=== PATIENT | male | born 1960 | race Caucasian/White ===

== ENCOUNTER 2019-05-13 11:26 | Inpatient (IN) | payer MEDICAID ==
[~2019-05-13] VITALS: Ht 185.4 cm; Wt 58.0 kg
[~2019-05-13 11:26] MED LIST: CLON0.5T PO
[2019-05-13] MEDS ORDERED: SODIUM CHLORIDE 0.9% 500 ML IVB ONE (11:57)
[2019-05-13] MEDS ORDERED: MORPHINE SULFATE 4 MG/ML SYR/VIAL IV ONE (12:00)
[2019-05-13] MEDS ORDERED: ONDANSETRON HCL 4 MG/2 ML VIAL IV ONE (12:00)
[2019-05-13 13:03] LABS: Basophils # (auto) 0.1 uL; Eosinophils # (auto) 0.1 uL; Mean Corpuscular Hemoglobin 25.5 pg (28.0-32.0)
[2019-05-13 13:11] LABS: Basophils % (auto) 1.6 % (0.0-2.0); Eosinophils % (auto) 2.1 % (0.0-7.0); Hemoglobin 8.7 g/dL (13.5-17.5); Lymphocytes # (auto) 1.9 uL; Lymphocytes % (auto) 27.6 % (10.0-50.0); Mean Corpuscular Hgb Conc. 31.1 g/dL (32.0-36.0); Monocytes # (auto) 0.8 uL; Monocytes % (auto) 11.4 % (0.0-12.0); Neutrophils # (auto) 3.9 uL; Neutrophils % (auto) 57.3 % (37.0-80.0); Platelet Count (auto) 338 10^3/uL (140-450); Red Blood Cells 3.42 10^6/uL (4.5-5.90); Red Cell Distribution Width 17.7 % (11.8-14.3); White Blood Cell 6.8 10^3/uL (4.4-10.8)
[2019-05-13 13:19] LABS: BUN/Creatinine Ratio 17.1; Calcium 8.5 mg/dL (8.5-10.1); Potassium 3.6 mmol/L (3.5-5.1)
[2019-05-13 13:22] LABS: Bilirubin, Total 0.4 mg/dL (0.2-1.0); Total Protein 6.8 g/dL (6.4-8.2)
[2019-05-13 14:07] LABS: Urine Bacteria FEW /hpf (None Seen); Urine Blood Negative /uL (Negative); Urine Hyaline Cast FEW /lpf (0 - 2); Urine Mucus FEW (None Seen); Urine Specific Gravity 1.019 (1.001-1.035); Urine WBC 3 /hpf (0 - 3)
[2019-05-13] MEDS ORDERED: LORazepam 0.5 MG TAB PO PRN (15:00)
[2019-05-13] MEDS ORDERED: PROMETHAZINE HCL 25 MG/ML 1ML IV PRN (15:00)
[2019-05-13] MEDS ORDERED: NITROGLYCERIN 0.4 MG SL TAB SL PRN (15:00)
[2019-05-13] MEDS ORDERED: MORPHINE SULF INJ 2 MG/ML SYRINGE 1ML IV PRN (15:00)
[2019-05-13] MEDS ORDERED: LACTULOSE 20Gm/30ML SOLN PO PRN (15:00)
[2019-05-13] MEDS: PANTOPRAZOLE 40 MG TAB PO SCH ×2 (15:20→22:00)
[2019-05-13] MEDS: SODIUM CHLORIDE 0.9% 1,000 ML IV SCH ×2 (15:20→22:50)
[2019-05-13 15:25] LABS: CRP High Sensitivity 0.31 mg/dL (< 0.3)
--- NOTE | 2019-05-13 17:17 | NUR ---
Telemetry admit from ER DINH COLÓN admitted to Telemetry unit after SBAR received. Patient oriented to Rose Catherine, primary RN, unit, room, bed, and unit policies regarding patient care and visiting hours. Patient now on continuous telemetry monitoring, tele box #65 and telemetry reading on arrival to unit is SR. Patient placed on bedside oxygen, weighed by bed scale and encouraged to call if they need something. All questions and concerns addressed, patient verbalized understanding.
[2019-05-13] MEDS ORDERED: INFLUENZA QUAD 2019-2020 0.5ml SYRG IM ONE (18:15)
--- NOTE | 2019-05-13 18:15 | NUR ---
AMA form Patient educated on possible risks once stepping out of hospital. Patient acknowledged understanding. Patient signed AMA form to smoke.
--- NOTE | 2019-05-13 18:19 | NUR ---
MRSA SWAB MRSA SWAB collected from R/L nare and sent to lab via [employer] system.
[2019-05-13 18:55] LABS: Hematocrit 26.3 % (41.0-53.0); Hemoglobin 8.3 g/dL (13.5-17.5)
[2019-05-13 20:00] VITALS: BP 125/64
--- NOTE | 2019-05-13 20:00 | NUR ---
Opening Shift Note Assumed care of patient, awake and alert. No S/S of distress/SOB or pain. Instructed on POC and to call for assist PRN, will continue to monitor for changes Q1hr and PRN.
[2019-05-13 22:00] VITALS: BP 125/64
[2019-05-13] MEDS: metroNIDAZOLE 500MG/100ML 100 ML IV SCH (22:13)
[2019-05-14] VITALS (7 sets, daily range): BP systolic 120–130; BP diastolic 64–90
[2019-05-14 00:39] LABS: Hematocrit 26.2 % (41.0-53.0); Hemoglobin 8.1 g/dL (13.5-17.5)
[2019-05-14 02:44] LABS: INR 1.01 (0.9-1.15); Partial Thromboplastin Time 27.2 sec (23.64-32.05)
--- NOTE | 2019-05-14 05:04 | NUR ---
patient refused to sign consents at this moment. Began to do ekg on patient patient would not allow me per patient" do it before i go down there in the morning."
[2019-05-14 05:24] LABS: Basophils # (auto) 0.1 uL; Eosinophils # (auto) 0.2 uL; Hemoglobin 8.2 g/dL (13.5-17.5); Lymphocytes # (auto) 1.5 uL; Monocytes # (auto) 0.7 uL; Neutrophils # (auto) 4.1 uL; Platelet Count (auto) 320 10^3/uL (140-450); White Blood Cell 6.6 10^3/uL (4.4-10.8)
[2019-05-14 05:26] LABS: Basophils % (auto) 1.6 % (0.0-2.0); Hematocrit 26.2 % (41.0-53.0); Lymphocytes % (auto) 22.2 % (10.0-50.0); Mean Corpuscular Hemoglobin 25.8 pg (28.0-32.0); Mean Corpuscular Hgb Conc. 31.3 g/dL (32.0-36.0); Mean Corpuscular Volume 82.3 fL (80.0-100.0); Monocytes % (auto) 10.8 % (0.0-12.0); Neutrophils % (auto) 62.4 % (37.0-80.0); Red Blood Cells 3.18 10^6/uL (4.5-5.90); Red Cell Distribution Width 16.9 % (11.8-14.3)
[2019-05-14] MEDS: metroNIDAZOLE 500MG/100ML 100 ML IV SCH ×3 (05:35→21:04)
[2019-05-14 05:43] LABS: Albumin 2.6 g/dL (3.4-5.0); Calcium 8.2 mg/dL (8.5-10.1); Potassium 4.6 mmol/L (3.5-5.1)
[2019-05-14 05:45] LABS: BUN/Creatinine Ratio 12.9
[2019-05-14 05:52] LABS: Bilirubin, Total 0.2 mg/dL (0.2-1.0)
[2019-05-14] MEDS: SODIUM CHLORIDE 0.9% 1,000 ML IV SCH ×3 (06:50→23:17)
--- NOTE | 2019-05-14 07:30 | NUR ---
REPORT GIVEN TO DAYSHIFT RN. ALL QUESTIONS AND CONCERNS ABOUT PATIENT ANSWERED.
--- NOTE | 2019-05-14 08:00 | NUR ---
ASSUMED CARE OF PATIENT AWAKE AND ALERT X4. NO SIGNS AND SYMPTOMS OF DISTRESS/SOB. NO COMPLAINTS OF PAIN AT THIS TIME. BED IN LOWEST LOCKED POSITION, SIDERAILS UPX2, CALL LIGHT WITHIN REACH. INSTRUCTED ON POC AND TO CALL FOR ASSISTANCE PRN. WILL CONTINUE TO MONITOR Q1H AND PRN.
--- NOTE | 2019-05-14 08:15 | NUR ---
Per RECREATIONAL PROGRAMS DIRECTOR, patient was eating, he was chewing on food. Patient denies eating anything. MD aware.
[2019-05-14] MEDS ORDERED: SODIUM CHLORIDE LOCK 10 ML ONE (09:04)
[2019-05-14] MEDS ORDERED: MIDAZOLAM HCL 5 MG/ML-1ML VIAL ONE (09:05)
[2019-05-14] MEDS ORDERED: fentaNYL CITRATE 100 MCG/2 ML VL ONE (09:05)
[2019-05-14] MEDS ORDERED: diphenhdrAMINE HCL 50 MG/1 ML VL ONE (09:05)
[2019-05-14] MEDS ORDERED: LIDOCAINE VISCOUS 2% 15ML UD ONE (09:05)
[2019-05-14] MEDS: PANTOPRAZOLE 40 MG TAB PO SCH (10:00)
--- NOTE | 2019-05-14 11:15 | NUR ---
Patient down at pre-op.
[2019-05-14] MEDS ORDERED: ALBUTEROL SULF 2.5 MG/0.5ML(0.5%) NEB SOLN NEB PRN (11:30)
--- NOTE | 2019-05-14 16:26 | NUR ---
Respiratory note: ASSESSED PATIENT FOR PRN BREATHING TX. PATIENT IS AWAKE AND ALERT, NO RESPIRATORY DISTRESS NOTED AT THIS TIME. PATIENT UNDERSTANDS TO HAVE RT PAGED IF BREATHING TX IS NEEDED. WILL CONTINUE TO MONITOR PATIENT.
--- NOTE | 2019-05-14 16:38 | NUR ---
Received referral for Social Service consult as pt is homeless. Pt is alert and oriented times three but is hard of hearing. Asked pt where he has been staying. Pt replied that he is staying "everywhere." He further states that he "bums" around for food. Pt has no ID and no Income. He has a daughter who he was staying with but they has an argument and he walked out. Pt was questioned as to if he was welcomed back into her home. He stated yes and they had talked on the phone yesterday. Pt also stated his daughter would pick him up.
--- NOTE | 2019-05-14 17:04 | NUR ---
assessment Patient is a 58 year old male who is alert and oriented. Patients cognitive abilities are intact. Prior to admission patient was homeless. Patient informed me he did live with his daughter, but left due to an argument. Per patient he will return home with his daughter post discharge and she will transport him home. I informed patient Rupinder REDMOND will bring him resources if he should need them. I informed patient he has a right to speak to a school social worker regarding all care. I informed patient he has a right to participate in any and all discharge planning. Patient does not have a POA and advanced directive. I have offered patient information on POA and advanced directives. I informed the patient the advantages and benefits of having an Advanced Directive. Patient verbalized understanding and agreed to discharge plan. Addendum: 05/14/19 at 1706 by Tala WOMACK Amended: Links added.
--- NOTE | 2019-05-14 20:20 | NUR ---
CALL FROM NURSING HOME DIRECTOR TO TOOLROOM HELPER, PATIENT IS RUNNING TACHYCARDIA. UPON ENTERING ROOM PATIENT IS COMING OUT OF THE RESTROOM. PATIENT DENIES ANY PAIN/SOB./ OR DISTRESS. ASSISTED PATIENT BACK IN BED. PATIENT IS DRINKING COFFEE. PATIENT RUNNING SR AT 85BPM. BED IN LOW POSITION AND CALL LIGHT WITHIN REACH.
--- NOTE | 2019-05-15 02:14 | NUR ---
SUTURE WINDER HAND VADIM INFORMED ME THAT PER TELE DOUBLE BACKER PATIENT IS RUNNING SVT. UPON ENTERING ROOM PATIENT REPORTS NO SIGNS OF PAIN OR DISTRESS.PATIENT HAD DISCONNECTED HIMSELF FROM HIS IV FLUIDS TO USE THE RESTROOM. WATER WAS FOUND ON THE FLOOR. PATIENT STATED HE WENT TO THE RESTROOM. VS 132/61 B/P, HR 81, O2 SATURATION VIA ROOM AIR 95%, RR17, 0/10 PAIN. EDUCATED PATIENT TO CALL FOR ASSISTANCE AND TO NOT DISCONNECT HIMSELF. PATIENT VERBALIZED UNDERSTANDING. PATIENT BACK IN BED. BED IN LOW POSITION AND CALL LIGHT WITHIN REACH.
[2019-05-15] MEDS: metroNIDAZOLE 500MG/100ML 100 ML IV SCH ×3 (05:27→21:17)
[2019-05-15 05:49] VITALS: BP 130/73
[2019-05-15 06:05] LABS: Basophils # (auto) 0.1 uL; Eosinophils # (auto) 0.1 uL; Hemoglobin 8.2 g/dL (13.5-17.5); Lymphocytes # (auto) 1.9 uL; Mean Corpuscular Hemoglobin 25.8 pg (28.0-32.0); Red Blood Cells 3.19 10^6/uL (4.5-5.90)
[2019-05-15 06:07] LABS: Basophils % (auto) 1.6 % (0.0-2.0); Eosinophils % (auto) 2.4 % (0.0-7.0); Hematocrit 26.1 % (41.0-53.0); Lymphocytes % (auto) 34.7 % (10.0-50.0); Mean Corpuscular Hgb Conc. 31.5 g/dL (32.0-36.0); Mean Corpuscular Volume 81.9 fL (80.0-100.0); Monocytes # (auto) 0.7 uL; Monocytes % (auto) 12.2 % (0.0-12.0); Neutrophils # (auto) 2.7 uL; Neutrophils % (auto) 49.1 % (37.0-80.0); Nucleated Red Blood Cells % 0.1 %; Platelet Count (auto) 323 10^3/uL (140-450); Red Cell Distribution Width 17.3 % (11.8-14.3); White Blood Cell 5.6 10^3/uL (4.4-10.8)
--- NOTE | 2019-05-15 06:20 | NUR ---
patient went to the restroom and linen change was done.
--- NOTE | 2019-05-15 06:31 | NUR ---
patient went down to smoke AMA form signed. educated patient about hospital smoking policy. patient verbalized understanding, requested to go smoke.
[2019-05-15 06:35] LABS: Albumin 2.6 g/dL (3.4-5.0); BUN/Creatinine Ratio 17.6; Bilirubin, Total 0.3 mg/dL (0.2-1.0); Calcium 8.4 mg/dL (8.5-10.1); Potassium 4.3 mmol/L (3.5-5.1); Total Protein 6.2 g/dL (6.4-8.2)
--- NOTE | 2019-05-15 06:47 | NUR ---
Patient returned from smoking
[2019-05-15] MEDS: SODIUM CHLORIDE 0.9% 1,000 ML IV SCH ×3 (06:52→21:18)
[2019-05-15] MEDS: traMADol HCL 50 MG TAB PO PRN ×2 (06:53→20:07)
--- NOTE | 2019-05-15 07:20 | NUR ---
REPORT GIVEN AND ENDORSED CARE TO THERON SEGURA.
--- NOTE | 2019-05-15 07:55 | NUR ---
Morning note Opening Shift Note Assumed care of patient, resting with eyes closed observed respiration even and non labored. No S/S of distress/SOB or pain. Bed in lowest position, breaks locked, side rails up x2,call light with in reach. Will continue to monitor for changes Q1hr and PRN.
[2019-05-15 08:10] VITALS: BP 128/73
[2019-05-15 09:17] VITALS: BP 128/73
[2019-05-15] MEDS: PANTOPRAZOLE 40 MG TAB PO SCH (10:08)
[2019-05-15 14:20] VITALS: BP 129/73
--- NOTE | 2019-05-15 15:23 | NUR ---
ASSESSED PT FOR THE REQUIREMENT OF MED NEB PRN TX. PT ON RA WITH CLEAR BS, SPO2 98%, HR 89, RR 18. NO DISTRESS NOTED. MED NEB NOT INDICATED. WILL CONTINUE TO MONITOR PT.
--- NOTE | 2019-05-15 16:35 | NUR ---
Contacted Ale case management, notified her on psychotherapist social worker consult.
--- NOTE | 2019-05-15 16:40 | NUR ---
Called phone number provided by the patient Phone number provided by patient, and called per patient requests. Phone number is to patient's brother in law David [phone]. Patient and David have not seen each other in 20 years, per David. David reports that the patient's daughters names are Dang and Mikaela but could not provide phone numbers of family. David requested to call back to give phone numbers of family members.
--- NOTE | 2019-05-15 16:50 | NUR ---
Spoke with Family Contacted patients daughter Danae at phone number [phone]. Danae stated " I know my father is homeless and he uses drugs. I cannot have him living with me if he is not Sober." Danae requested to speak to patient and hung up during transfer. Was called back and no answer message was left.
--- NOTE | 2019-05-15 16:55 | NUR ---
Case management: Spoke with Ale case management on possible placement facilities. Requested to contact [facility] [phone] to see if there is any available beds for patient. Called phone number provided by Ale, no answer and voicemail was full.
[2019-05-15 17:06] VITALS: BP 121/68
--- NOTE | 2019-05-15 17:18 | NUR ---
Spoke with David Hernandez stated "I haven't seen or talked to him in 20 years. We have been looking for him. His nieces really want to get into contact with him but are hesitant to give out their number to him because we don't know if this is for sure the right Erik." David provided a specific question for the patient to answer to confirm that this is the correct Erik Willams they have been looking for. Patient correctly answered the question. David stated "I knew he was out that way. Myself and my nieces are in [place]. The last I heard he was at the sober living house but by the time I called he had already left. I'm going to see about getting his a bus ride out here and I can help him with a place to live then he can be united with his daughters." Phone call was transferred to the patient's room. Mr. Alejandro Willams gave this RN permission to speak with David. IMELDA Leong, and Dr. Trujillo were witness to the verbal agreement.
--- NOTE | 2019-05-15 17:45 | NUR ---
Spoke with David Hernandez stated "I'm going to buy him a one-way ticket to [place] and have him come out here to stay with us. The bus station is already closed today but I will get him a ticket tomorrow. I'm going to call as soon as they open."
--- NOTE | 2019-05-15 18:23 | NUR ---
RE: Discharge Updated Dr. Trujillo that patient is being provided with transportation to [place] 05/16/19 by his [id number] David. verbalized understanding. Orders received and read back to verify.
--- NOTE | 2019-05-15 18:40 | NUR ---
HOMELESS MEAL AT BEDSIDE PROVIDED BY DIETARY.
--- NOTE | 2019-05-15 19:35 | NUR ---
Endorsed care to NOC RN Rachel. Patient respiration even and unlabored. No s/s of distress noted.
--- NOTE | 2019-05-15 19:35 | NUR ---
Opening Shift Note Assumed care of patient, eyes closed, respirations even and unlabored, appears asleep. No S/S of distress/SOB or pain. Bed in lowest locked position, side rails up x2, call light within reach. Instructed on POC and to call for assist PRN, will continue to monitor for changes Q1hr and PRN.
--- NOTE | 2019-05-15 20:10 | NUR ---
Respiratory note: PT ASSESSED FOR PRN MED NEB TX. HR 75, RR 14, SPO2 95% ON R/A. NO SIGNS OF ANY RESPIRATORY DISTRESS NOTED. ADVISED PT TO CALL IF TX IS NEEDED. RT NAME AND PAGER NUMBER WRITTEN ON PT'S BOARD.
[2019-05-15 22:00] VITALS: BP 138/72
[2019-05-16 05:00] VITALS: BP 122/68
[2019-05-16] MEDS: metroNIDAZOLE 500MG/100ML 100 ML IV SCH (05:56)
[2019-05-16] MEDS: SODIUM CHLORIDE 0.9% 1,000 ML IV SCH ×2 (05:56→14:50)
--- NOTE | 2019-05-16 06:55 | NUR ---
Closing Note Patient lying in bed, eyes closed, respirations even and unlabored, appears asleep. Patient awakens to name and touch. No s/s of distress. Bed in lowest locked position, side rails up x2, call light within reach. Care endorsed to dayshift RN.
[2019-05-16 09:38] VITALS: BP 114/59
--- NOTE | 2019-05-16 09:40 | NUR ---
Respiratory note: PT ASSESSED FOR PRN MED NEB TX, NO TX DESIRED NOR INDICATED AT THIS TIME. PT DENIES SOB OR DIFF BREATHING, NO DISTRESS NOTED. HR 77 RR 16 SPO2 98% ON RA. PT AND RN AWARE TO HAVE RT PAGED IF NEEDED.
[2019-05-16] MEDS: PANTOPRAZOLE 40 MG TAB PO SCH (10:33)
--- NOTE | 2019-05-16 10:45 | NUR ---
Went in to patients room to talk about his discharge, Patient stated" Im feeling suicidal now". Ask patient if he had a plan Patient stated "Throw myself in front on a train or hang my self" Asked patient how long he has been feeling this way he stated "today". Asked patient has he ever felt this way before he said last year and was sent to [facility]. Paged doctor Ronnie to notify of patient statement, awaiting call back. Will continue to monitor. warp tester Mary pelayo.
--- NOTE | 2019-05-16 12:14 | NUR ---
Tele psych Spoke with Tele psych Valeriano, Tele monitor is currently being used on another patient. RN will call back when available to use on patient. Phone [phone].
[2019-05-16] MEDS ORDERED: NICOTINE 7MG/24HR TOPICAL PATCH TD ONE (12:15)
[2019-05-16 13:00] VITALS: BP 112/53
--- NOTE | 2019-05-16 14:25 | NUR ---
PATIENT SMOKING RECEIVED CALL FROM DEBI. PATIENT WAS IN BATHROOM AND TOOK ELECTRIC RAZOR. PER SITTER SHE KNOCKED ON BATHROOM DOOR TO ASK FOR RAZOR PATIENT OPENED DOOR AND WHEN THE DOOR WAS OPEN SHE SMELLED CIGARETTE SMOKE. THE PATIENT HANDED HER THE RAZOR AND THEN CLOSED THE DOOR. RN CAME TO ROOM AND KNOCKED ON DOOR PATIENT STATED "IM USING THE BATHROOM". WHEN PATIENT CAME OUT BATHROOM IT SMELLED STRONG OF SMOKE AND THERE WAS TOBACCO AND ASHES AROUND TOILET. PATIENT WAS ASKED IF HE SMOKED IN THE BATHROOM PATIENT DENIED SMOKING AND STATED "I ALWAYS SMELL LIKE SMOKE" MIRROR POLISHER LAURA AWARE AND SECURITY WAS CALLED. PATIENT EDUCATED THAT HE CAN NOT SMOKE IN THE HOSPITAL PATIENT STILL DENIED SMOKING.
--- NOTE | 2019-05-16 16:15 | NUR ---
Doctor Ronnie at bedside. MD was discussing POC with patient. MD told patient he could not smoke in the bathroom of the hospital.Patient became aggressive towards doctor. Patient shouted at MD using profound language and started to get out of bed towards MD. MD requested to call security to room.
--- NOTE | 2019-05-16 16:30 | NUR ---
Tele psych Results faxed over and shown to Doctor Ronnie. Per Ronnie patient okay to discharge. Results in patients chart.
--- NOTE | 2019-05-16 16:50 | NUR ---
Discharge Patient stated he was going to leave with out signing discharge paperwork. Patient was agitated and restless wanting to leave. Patient took out his own IV and removed tele box. Patient refused Influenza vaccine. Patient left homeless meal at bedside. Patient refused discharge education. Patient had bus pass and prescription in hand. Patient refused assistance from staff and ambulated with steady gait to elevator with all personal belonging accompany by staff member. No S/S of distress noted. Tele box sent back to ICU.
--- NOTE | 2019-05-17 08:46 | NUR ---
cms expert 05/15/19 I received a page from nurse Leong at 1630 regarding this patient not having a place to go home to. Per previous notes, the discharge plan was for patient to go home with his daughter. I spoke with patient via phone, and he said that was the plan-to go home with his daughter. I provided nurse Leong with information on [facility] in [place] to give to patient as a back up plan-letting her know that patient would have to speak with them on the phone-I let patient know this as well.
[2019-05-17] MEDS ORDERED: NICOTINE 7MG/24HR TOPICAL PATCH TD SCH (10:00)
[2019-05-17 10:41] LABS: Hepatitis B Surface Antibody Negative
[2019-05-17 11:15] LABS: Hepatitis A Total Antibody Negative
[2019-05-17 13:47] LABS: Hepatitis B Surface Antigen Negative (Negative)
[2019-05-17 13:48] LABS: Hepatitis B Core Total AB Negative
[2019-05-17 13:51] LABS: Hepatitis C Antibody Positive (Negative)
== END 2019-05-16 16:50 | disposition home or self-care (01) | DRG 241 ==
LOC: ER 11:26 → TELE 11:27 → TELE-WESTW 17:27
PROVIDERS: ADMIT Internal Medicine; ATTEND Internal Medicine
PROC: 0DB68ZX Excision of Stomach, Via Natural or Artificial Opening Endoscopic, Diagnostic (ICD-10-PCS; principal; 2019-05-14 11:59)
DX: K29.81 Duodenitis with bleeding (principal); D62 Acute posthemorrhagic anemia; F20.9 Schizophrenia, unspecified; J43.9 Emphysema, unspecified; E44.1 Mild protein-calorie malnutrition; I10 Essential (primary) hypertension; F17.210 Nicotine dependence, cigarettes, uncomplicated; R74.0 Nonspecific elevation of levels of transaminase and lactic acid dehydrogenase [LDH]; K59.00 Constipation, unspecified; F41.9 Anxiety disorder, unspecified; I70.90 Unspecified atherosclerosis; Z59.0 Homelessness; Z79.899 Other long term (current) drug therapy; Z28.21 Immunization not carried out because of patient refusal
CPT/HCPCS: 36415; 43239; 71045; 74176; 80053; 81001; 82150; 82378; 83690; 83735; 85014; 85018; 85025; 85045; 85610; 85652; 85730; 86141; 86703; 86704; 86706; 86708; 86803; 86850; 86900; 86901; 87081; 87340; 96361; 96365; 96375; G0378; J2250; J2405; J3490

== ENCOUNTER 2019-11-15 14:28 | Inpatient (IN) | payer MEDICAID ==
[~2019-11-15] VITALS: Ht 185.4 cm; Wt 64.0 kg
[2019-11-15] MEDS ORDERED: SODIUM CHLORIDE 0.9% 500 ML IV ONE (14:44)
[2019-11-15] MEDS ORDERED: ONDANSETRON HCL 4 MG/2 ML VIAL IV ONE (14:45)
[2019-11-15] MEDS ORDERED: diphenhdrAMINE HCL 50 MG/1 ML VL IV ONE (14:45)
[2019-11-15 15:08] LABS: Eosinophils % (auto) 0.2 % (0.0-7.0); Mean Corpuscular Volume 81.7 fL (80.0-100.0)
[2019-11-15 15:19] LABS: Basophils # (auto) 0 10 ^3/uL (0-0.2); Basophils % (auto) 0.5 % (0.0-2.0); Eosinophils # (auto) 0 10 ^3/uL (0-0.8); Hematocrit 29.4 % (41.0-53.0); Lymphocytes # (auto) 2.2 10 ^3/uL (0.4-5.4); Lymphocytes % (auto) 24.1 % (10.0-50.0); Mean Corpuscular Hgb Conc. 30.6 g/dL (32.0-36.0); Monocytes # (auto) 1.4 10 ^3/uL (0-1.3); Monocytes % (auto) 15.1 % (0.0-12.0); Neutrophils # (auto) 5.5 10 ^3/uL (1.6-8.6); Neutrophils % (auto) 60.1 % (37.0-80.0); Platelet Count (auto) 310 10^3/uL (140-450); Red Blood Cells 3.59 10^6/uL (4.5-5.90); Red Cell Distribution Width 20.2 % (11.8-14.3); White Blood Cell 9.1 10^3/uL (4.4-10.8)
[2019-11-15 15:33] LABS: Albumin 3.3 g/dL (3.4-5.0); Calcium 8.6 mg/dL (8.5-10.1); Potassium 4.9 mmol/L (3.5-5.1)
[2019-11-15 15:37] LABS: BUN/Creatinine Ratio 33.6; Bilirubin, Total 0.4 mg/dL (0.2-1.0); Total Protein 7.8 g/dL (6.4-8.2)
[2019-11-15] MEDS ORDERED: METOCLOPRAMIDE HCL 5MG/ml INJ 2ml VIAL IV PRN (16:00)
[2019-11-15] MEDS ORDERED: MORPHINE SULFATE 4 MG/ML SYR/VIAL IV PRN (16:00)
[2019-11-15] MEDS ORDERED: LACTATED RINGER'S 1,900 ML IV ONE (16:00)
[2019-11-15] MEDS ORDERED: NITROGLYCERIN 0.4 MG SL TAB SL PRN (16:00)
[2019-11-15] MEDS ORDERED: ONDANSETRON HCL 4 MG/2 ML VIAL IV PRN (16:00)
[2019-11-15] MEDS ORDERED: TEMAZEPAM 15 MG CAP PO PRN (16:00)
[2019-11-15] MEDS ORDERED: MORPHINE SULF INJ 2 MG/ML SYRINGE 1ML IV PRN (16:00)
[2019-11-15] MEDS ORDERED: PANTOPRAZOLE 40 MG/10 ML VIAL INJ IV ONE (16:00)
[2019-11-15] MEDS ORDERED: HYDROcodone-ACET 5/325MG TAB PO PRN (16:00)
[2019-11-15] MEDS ORDERED: SUCRALFATE 1 GM/10 ML ORAL SUSP PO ONE (16:00)
[2019-11-15] MEDS ORDERED: ALUM & MAG HYDROX-SIMETH LIQ(MAALOX) 30 ML PO PRN (16:00)
[2019-11-15] MEDS ORDERED: BENZTROPINE MESY 0.5 MG TAB PO ONE (16:30)
[2019-11-15 16:40] LABS: INR 1.05 (0.9-1.15); Partial Thromboplastin Time 25.8 sec (23.64-32.05)
[2019-11-15] MEDS: SODIUM CHLORIDE 0.9% 1,000 ML IV SCH ×2 (17:22→21:00)
--- NOTE | 2019-11-15 17:43 | NUR ---
Telemetry admit from ER DINH COLÓN admitted to Telemetry unit after report received. Patient oriented to DEWAYNE LANDRY RN primary RN, unit, room, bed, and unit policies regarding patient care and visiting hours. Patient now on continuous telemetry monitoring, tele box #28 and telemetry reading on arrival to unit. Patient weighed by bedscale and encouraged to call if they need something. All questions and concerns addressed, patient verbalized understanding.
--- NOTE | 2019-11-15 18:10 | NUR ---
AMA Patient has signed an AMA to smoke.
[2019-11-15 18:22] LABS: Alcohol, Urine < 3.0 mg/dL (0-5); Amphetamine Screen, Urine POSITIVE (NEGATIVE); Barbiturate Scree,Urine NEGATIVE (NEGATIVE); Cannabinoid Screen, Urine NEGATIVE (NEGATIVE); Cocaine Screen, Urine NEGATIVE (NEGATIVE); Opiate Scree,Urine NEGATIVE (NEGATIVE); Phencyclidine Screen, Urine NEGATIVE (NEGATIVE)
[2019-11-15 18:30] LABS: Benzodiazephine Screen, Urine NEGATIVE (NEGATIVE)
[2019-11-15 18:41] VITALS: BP 133/84
--- NOTE | 2019-11-15 19:19 | NUR ---
Closing Shift Note Patient resting in bed. No distress noted. Report given. Will endorse care to the police shift commander RN.
--- NOTE | 2019-11-15 19:20 | NUR ---
Opening Shift Note Assumed care of patient, awake and alert. No S/S of distress/SOB or pain. Instructed on POC and to call for assist PRN. Call light in reach, bed in lowest position, wheels locked. will continue to monitor for changes Q1hr and PRN.
[2019-11-15] MEDS: MORPHINE SULF INJ 2 MG/ML SYRINGE 1ML IV PRN (20:38)
[2019-11-15] MEDS: QUEtiapine FUMARATE 100 MG TAB PO SCH (21:39)
[2019-11-15] MEDS: clonazePAM 0.5 MG TAB PO SCH (21:39)
[2019-11-15 22:00] VITALS: BP 112/71
[2019-11-15] MEDS ORDERED: PANTOPRAZOLE 40 MG/10 ML VIAL INJ IV SCH (22:00)
[2019-11-16] MEDS: SODIUM CHLORIDE 0.9% 1,000 ML IV SCH ×3 (02:00→11:00)
[2019-11-16 04:59] VITALS: BP 106/53
[2019-11-16 05:57] LABS: Basophils # (auto) 0.1 10 ^3/uL (0-0.2); Basophils % (auto) 1.5 % (0.0-2.0); Eosinophils # (auto) 0.1 10 ^3/uL (0-0.8); Eosinophils % (auto) 1.5 % (0.0-7.0); Hematocrit 26.6 % (41.0-53.0); Hemoglobin 8.1 g/dL (13.5-17.5); Lymphocytes # (auto) 2.5 10 ^3/uL (0.4-5.4); Lymphocytes % (auto) 41.2 % (10.0-50.0); Mean Corpuscular Hemoglobin 25.6 pg (28.0-32.0); Mean Corpuscular Hgb Conc. 30.5 g/dL (32.0-36.0); Mean Corpuscular Volume 83.9 fL (80.0-100.0); Monocytes # (auto) 0.8 10 ^3/uL (0-1.3); Monocytes % (auto) 12.9 % (0.0-12.0); Neutrophils # (auto) 2.6 10 ^3/uL (1.6-8.6); Neutrophils % (auto) 42.9 % (37.0-80.0); Platelet Count (auto) 266 10^3/uL (140-450); Red Blood Cells 3.18 10^6/uL (4.5-5.90); Red Cell Distribution Width 19.5 % (11.8-14.3); White Blood Cell 6.1 10^3/uL (4.4-10.8)
[2019-11-16] MEDS: clonazePAM 0.5 MG TAB PO SCH ×3 (06:00→21:37)
[2019-11-16 06:11] LABS: INR 1.09 (0.9-1.15); Partial Thromboplastin Time 26.2 sec (23.64-32.05)
[2019-11-16 06:15] LABS: Potassium 4.3 mmol/L (3.5-5.1)
[2019-11-16 06:18] LABS: Urine WBC None Seen /hpf (0 - 3)
[2019-11-16 06:26] LABS: Urine Bacteria NONE SEEN /hpf (None Seen); Urine Blood Negative /uL (Negative); Urine Specific Gravity 1.007 (1.001-1.035)
[2019-11-16 06:32] LABS: Albumin 2.7 g/dL (3.4-5.0); BUN/Creatinine Ratio 26.8; Bilirubin, Total 0.4 mg/dL (0.2-1.0); Calcium 8.3 mg/dL (8.5-10.1); Magnesium 2.5 mg/dL (1.6-2.6); Total Protein 6.2 g/dL (6.4-8.2)
[2019-11-16] MEDS ORDERED: SUCRALFATE 1 GM/10 ML ORAL SUSP PO SCH (07:00)
--- NOTE | 2019-11-16 07:06 | NUR ---
Closing note Care endorsed to day shift RN. Pt no s/s of distress noted. Call light in reach, bed in lowest position, wheels locked.
--- NOTE | 2019-11-16 07:40 | NUR ---
Opening Shift Note Assumed care of patient, awake and alert. No S/S of distress/SOB or pain. Instructed on POC and to call for assist PRN, will continue to monitor for changes Q1hr and PRN. Bed locked in lowest position with two side rails up and call light in reach.
[2019-11-16 08:00] VITALS: BP 104/63
[2019-11-16] MEDS ORDERED: SODIUM CHLORIDE LOCK 10 ML ONE (08:16)
[2019-11-16] MEDS ORDERED: LIDOCAINE VISCOUS 2% 15ML UD ONE (08:16)
[2019-11-16] MEDS ORDERED: MIDAZOLAM HCL 5 MG/ML-1ML VIAL ONE (08:17)
[2019-11-16] MEDS ORDERED: fentaNYL CITRATE 100 MCG/2 ML VL ONE (08:17)
[2019-11-16] MEDS ORDERED: diphenhdrAMINE HCL 50 MG/1 ML VL ONE (08:17)
[2019-11-16 09:00] VITALS: BP 104/63
[2019-11-16] MEDS: cefTRIAXone 1GM/50ML D5W 50 ML IV SCH (10:40)
[2019-11-16] MEDS: PANTOPRAZOLE 40 MG TAB PO SCH ×2 (10:41→21:37)
[2019-11-16] MEDS: BENZTROPINE MESY 0.5 MG TAB PO SCH (10:41)
[2019-11-16 13:00] VITALS: BP 109/54
--- NOTE | 2019-11-16 14:57 | NUR ---
Nutrition Assessment Notes Please refer to link for full assessment notes. Est Energy needs: 1807-3296 kcals (23-25 kcal/kgIBW) d/t pt bordering underweight Est Protein needs: 84-100 gms/day (0.8-1.0 gm/kgIBW) Will continue to monitor and reassess prn. Addendum: 11/16/19 at [address] Amended: Links added.
[2019-11-16 17:05] VITALS: BP 124/77
[2019-11-16] MEDS: MORPHINE SULF INJ 2 MG/ML SYRINGE 1ML IV PRN (18:47)
--- NOTE | 2019-11-16 19:42 | NUR ---
RECEIVED REPORT FROM DAY RN POC REVIEWED
--- NOTE | 2019-11-16 19:45 | NUR ---
PT AMBULATED DOWNSTAIRS, ROLANDO PREVIOUSLY SIGNED, REMINDED PT OF HOSPITAL BEING NON SMOKING
--- NOTE | 2019-11-16 20:46 | NUR ---
PT ANGRY AND CURSING, BECAUSE HIS DINNER WAS TOO HARD, PT HAS NO TEETH, ORDER WAS EARLIER PLACED FOR PT TO HAVE A MECHANICAL DIET
--- NOTE | 2019-11-16 21:16 | NUR ---
PT LEFT UNIT,
--- NOTE | 2019-11-16 21:30 | NUR ---
PT RETURNED TO FLOOR
[2019-11-16] MEDS: QUEtiapine FUMARATE 100 MG TAB PO SCH (21:37)
--- NOTE | 2019-11-16 21:51 | NUR ---
PT LEFT FLOOR
--- NOTE | 2019-11-16 22:15 | NUR ---
pt returned to floor, no s/s of distress
--- NOTE | 2019-11-16 22:47 | NUR ---
pt given snack more calm at this time
[2019-11-17] VITALS (10 sets, daily range): BP systolic 121–140; BP diastolic 66–82
[2019-11-17] MEDS: SODIUM CHLORIDE 0.9% 1,000 ML IV SCH (02:08)
--- NOTE | 2019-11-17 04:00 | NUR ---
awoke incontinent of urine
[2019-11-17] MEDS: clonazePAM 0.5 MG TAB PO SCH ×3 (06:00→21:48)
--- NOTE | 2019-11-17 06:54 | NUR ---
pt resting refused am labs, report given to am nurse poc reviewed
[2019-11-17 10:06] LABS: Eosinophils # (auto) 0.1 10 ^3/uL (0-0.8); Hemoglobin 7.3 g/dL (13.5-17.5); Lymphocytes # (auto) 1.8 10 ^3/uL (0.4-5.4); Mean Corpuscular Volume 81.8 fL (80.0-100.0)
[2019-11-17 10:07] LABS: Basophils # (auto) 0.1 10 ^3/uL (0-0.2); Basophils % (auto) 1.3 % (0.0-2.0); Eosinophils % (auto) 1.8 % (0.0-7.0); Hematocrit 23.6 % (41.0-53.0); Lymphocytes % (auto) 36.4 % (10.0-50.0); Mean Corpuscular Hemoglobin 25.2 pg (28.0-32.0); Mean Corpuscular Hgb Conc. 30.8 g/dL (32.0-36.0); Monocytes # (auto) 0.7 10 ^3/uL (0-1.3); Monocytes % (auto) 14.8 % (0.0-12.0); Neutrophils # (auto) 2.3 10 ^3/uL (1.6-8.6); Neutrophils % (auto) 45.7 % (37.0-80.0); Platelet Count (auto) 250 10^3/uL (140-450); Red Blood Cells 2.89 10^6/uL (4.5-5.90); Red Cell Distribution Width 19.8 % (11.8-14.3); White Blood Cell 4.9 10^3/uL (4.4-10.8)
[2019-11-17 10:22] LABS: Albumin 2.6 g/dL (3.4-5.0); Calcium 8.1 mg/dL (8.5-10.1)
[2019-11-17 10:25] LABS: BUN/Creatinine Ratio 18.4; Bilirubin, Total 0.2 mg/dL (0.2-1.0); Total Protein 6.1 g/dL (6.4-8.2)
[2019-11-17] MEDS: BENZTROPINE MESY 0.5 MG TAB PO SCH (11:08)
[2019-11-17] MEDS: PANTOPRAZOLE 40 MG TAB PO SCH ×2 (11:08→21:48)
[2019-11-17] MEDS: cefTRIAXone 1GM/50ML D5W 50 ML IV SCH (11:09)
--- NOTE | 2019-11-17 15:18 | NUR ---
Received Social Service referral to see pt Imer. Pt is alert and oriented times 3. Pt has been homeless for at least 5 years. Pt states he has no source of income. He states he eats out of trash cans. Pt states he has no ID, no family for support [place] Pt says he does not use alcohol or drugs. Pt says he does not use any medical equipment or o2. He has no primary physician and never goes to a physician. emu farm worker called several facilities and none of them are taking any clients due to the virus. Pt has little tolerance for frustration.
--- NOTE | 2019-11-17 16:40 | NUR ---
BLOOD TRANSFUSION STARTED, VS 98.1 HR 91 RR 18 BP 129/72 PATIENT TOLERATING WELL. NO SIGNS AND SYMPTOMS OF DISTRESS NOTED.
--- NOTE | 2019-11-17 18:49 | NUR ---
BLOOD STILL TRANSFUSING NO SIGNS AND SYMPTOMS OF DISTRESS NOTED, PATIENT SLEEPING.. WILL ENDORSE REMAINDER OF BLOOD TO NOC NURSE.
--- NOTE | 2019-11-17 19:20 | NUR ---
Opening Shift Note Assumed care of patient. Patient is awake and alert. No S/S of distress/SOB or pain. Instructed on POC and to call for assist PRN, will continue to monitor for changes Q1hr and PRN. Bed locked in lowest position and bed rails up x2. Call light within reach. Blood transfusion currently infusing at 155ml/hr.
--- NOTE | 2019-11-17 19:45 | NUR ---
Blood transfusion stopped at this time, 1944. Patient awake and alert with no s/s of blood transfusion reaction. Vitals at time of completed transfusion are as follows: B/P 139/82, HR 88, O2 100, T 98.0. Will continue to monitor Q1H and PRN.
--- NOTE | 2019-11-17 19:49 | NUR ---
Patient off unit for smoke break. Patient aware of smoking policy. Addendum: 11/17/19 at 2002 by KARY UNDERWOOD RN Left at 2001
--- NOTE | 2019-11-17 20:20 | NUR ---
Patient back on unit from smoke break.
[2019-11-17] MEDS: QUEtiapine FUMARATE 100 MG TAB PO SCH (21:48)
[2019-11-18 04:58] VITALS: BP 134/68
[2019-11-18] MEDS: clonazePAM 0.5 MG TAB PO SCH (06:07)
--- NOTE | 2019-11-18 07:30 | NUR ---
Opening Shift Note Assumed care of patient, awake and alert. No S/S of distress/SOB or pain. Instructed on POC and to call for assist PRN, will continue to monitor for changes Q1hr and PRN.
[2019-11-18 08:53] VITALS: BP 124/68
[2019-11-18 09:06] LABS: Eosinophils # (auto) 0.1 10 ^3/uL (0-0.8); Mean Corpuscular Hemoglobin 25.7 pg (28.0-32.0); Monocytes # (auto) 0.8 10 ^3/uL (0-1.3); Neutrophils # (auto) 2.7 10 ^3/uL (1.6-8.6); White Blood Cell 5.5 10^3/uL (4.4-10.8)
[2019-11-18 09:08] LABS: Basophils # (auto) 0.1 10 ^3/uL (0-0.2); Basophils % (auto) 1.3 % (0.0-2.0); Eosinophils % (auto) 2.1 % (0.0-7.0); Hematocrit 31.4 % (41.0-53.0); Hemoglobin 9.7 g/dL (13.5-17.5); Lymphocytes # (auto) 1.8 10 ^3/uL (0.4-5.4); Lymphocytes % (auto) 32.8 % (10.0-50.0); Mean Corpuscular Volume 83.1 fL (80.0-100.0); Monocytes % (auto) 14.2 % (0.0-12.0); Neutrophils % (auto) 49.6 % (37.0-80.0); Platelet Count (auto) 297 10^3/uL (140-450); Red Blood Cells 3.78 10^6/uL (4.5-5.90); Red Cell Distribution Width 19.8 % (11.8-14.3)
[2019-11-18] MEDS: cefTRIAXone 1GM/50ML D5W 50 ML IV SCH (09:12)
[2019-11-18] MEDS: BENZTROPINE MESY 0.5 MG TAB PO SCH (09:12)
[2019-11-18] MEDS: PANTOPRAZOLE 40 MG TAB PO SCH (09:12)
[2019-11-18 09:27] LABS: BUN/Creatinine Ratio 17.6; Calcium 9.1 mg/dL (8.5-10.1); Potassium 4.3 mmol/L (3.5-5.1)
[2019-11-18 09:29] LABS: Bilirubin, Total 0.4 mg/dL (0.2-1.0); Total Protein 7.1 g/dL (6.4-8.2)
[2019-11-18 10:18] LABS: Hepatitis A Ab IgM Negative; Hepatitis B Core IgM Negative; Hepatitis B Surface Antigen Negative (Negative); Hepatitis C Antibody Negative (Negative)
[2019-11-18 11:06] VITALS: BP 124/68
[2019-11-18 13:00] VITALS: BP 125/54
--- NOTE | 2019-11-18 13:05 | NUR ---
Social Consult regarding pt being homeless. Attempted to find placement but there are not any facilities taking pts due to virus. Pt states he [facility] to go to Crisis [facility]. Pt was provided with a sack lunch, a pair of jeans and a large shirt. Pt signed waiver. Taxi will provide transportation to Center.
--- NOTE | 2019-11-18 14:10 | NUR ---
Telemetry admit from [facility] admitted to Telemetry unit after SBAR received. Patient oriented to Kori García RN primary RN, unit, room, bed, and unit policies regarding patient care and visiting hours. Patient now on continuous telemetry monitoring, tele box # 32 and telemetry reading on arrival to unit is SR 87. Patient placed on bedside oxygen, weighed by bedscale and encouraged to call if they need something. All questions and concerns addressed, patient verbalized understanding. Note: [] Addendum: 11/18/19 at 1429 by Kori García RN RN documented on wrong patient.
--- NOTE | 2019-11-18 14:15 | NUR ---
Discharge instructions given as ordered. Encourage to follow up with PMD as instructed. All questions and concerns addressed. Patient verbalized understanding. Medication reconciliation form completed and copy given to patient. Home medications held in Pharmacy returned to patient, and needed vaccines given. IV removed with catheter intact, pressure dressing applied. Telemetry unit returned to ICU. Patient is homeless and taxi voucher had been arranged. Patient left with all of his belongings before taxi arrived. exhaust equipment operator informed.
== END 2019-11-18 14:15 | disposition home or self-care (01) | DRG 241 ==
LOC: ER 14:28 → TELE 14:29 → TELE-CENTR 17:43
PROVIDERS: ADMIT Hospitalist; ATTEND Internal Medicine
PROC: 0DB68ZX Excision of Stomach, Via Natural or Artificial Opening Endoscopic, Diagnostic (ICD-10-PCS; principal; 2019-11-16 09:42)
PROC: 30233N1 Transfusion of Nonautologous Red Blood Cells into Peripheral Vein, Percutaneous Approach (ICD-10-PCS; 2019-11-17)
DX: K25.0 Acute gastric ulcer with hemorrhage (principal); E44.0 Moderate protein-calorie malnutrition; R64 Cachexia; F20.9 Schizophrenia, unspecified; G24.09 Other drug induced dystonia; G24.01 Drug induced subacute dyskinesia; J44.9 Chronic obstructive pulmonary disease, unspecified; D64.9 Anemia, unspecified; F31.9 Bipolar disorder, unspecified; F15.10 Other stimulant abuse, uncomplicated; F17.200 Nicotine dependence, unspecified, uncomplicated; Z68.1 Body mass index [BMI] 19.9 or less, adult; Z79.899 Other long term (current) drug therapy; N28.1 Cyst of kidney, acquired
CPT/HCPCS: 36415; 43239; 74176; 76775; 80053; 80061; 80074; 80307; 81001; 82550; 83036; 83735; 84100; 85025; 85610; 85730; 86850; 86900; 86901; 86920; 93005; 93306; 96361; 96374; 96375; C9113; G0378; J0696; J2250; J2405

== ENCOUNTER 2019-11-18 15:17 | Emergency (ER) | payer MEDICAID ==
[~2019-11-18] VITALS: Ht 177.8 cm; Wt 68.0 kg
[2019-11-18 15:27] VITALS: BP 144/94
[2019-11-18] MEDS ORDERED: diphenhdrAMINE HCL 25 MG CAP PO ONE (15:30)
== END 2019-11-18 16:31 | disposition home or self-care (01) ==
LOC: ER 15:17 → EDBD 15:17 → ER 16:31
DX: F41.9 Anxiety disorder, unspecified (principal); T50.905A Adverse effect of unspecified drugs, medicaments and biological substances, initial encounter

== ENCOUNTER 2019-11-18 17:19 | Emergency (ER) | payer MEDICAID ==
[~2019-11-18] VITALS: Ht 185.4 cm; Wt 78.5 kg
[2019-11-18] MEDS ORDERED: TEMAZEPAM 15 MG CAP PO ONE (21:45)
[2019-11-19 08:51] LABS: Urine Bacteria NONE SEEN /hpf (None Seen); Urine Blood Negative /uL (Negative); Urine Specific Gravity 1.006 (1.001-1.035); Urine WBC <1 /hpf (0 - 3)
[2019-11-19 09:05] LABS: Alcohol, Urine < 3.0 mg/dL (0-5); Amphetamine Screen, Urine NEGATIVE (NEGATIVE); Barbiturate Scree,Urine NEGATIVE (NEGATIVE); Benzodiazephine Screen, Urine NEGATIVE (NEGATIVE); Cannabinoid Screen, Urine NEGATIVE (NEGATIVE); Cocaine Screen, Urine NEGATIVE (NEGATIVE); Opiate Scree,Urine NEGATIVE (NEGATIVE); Phencyclidine Screen, Urine NEGATIVE (NEGATIVE)
[2019-11-19] MEDS ORDERED: LORazepam 0.5 MG TAB PO PRN (10:00)
[2019-11-19] MEDS ORDERED: HYDROcodone-ACET 5/325MG TAB PO ONE (16:45)
[2019-11-19 19:41] VITALS: BP 152/77
== END 2019-11-19 20:03 ==
LOC: ER 17:19
DX: F20.9 Schizophrenia, unspecified (principal); R45.851 Suicidal ideations; F15.10 Other stimulant abuse, uncomplicated; Z59.0 Homelessness
CPT/HCPCS: 80307; 81001

== ENCOUNTER 2021-06-18 04:34 | Emergency (ER) | payer MEDICAID ==
[~2021-06-18] VITALS: Ht 170.2 cm; Wt 61.2 kg
[2021-06-18 04:34] VITALS: BP 123/76
== END 2021-06-18 13:48 | disposition left against medical advice (07) ==
LOC: EDBD 04:34 → EDUNIT# 04:34 → ER 04:34
DX: R45.851 Suicidal ideations (principal); F20.9 Schizophrenia, unspecified; F41.9 Anxiety disorder, unspecified; F15.10 Other stimulant abuse, uncomplicated; Z59.00 Homelessness unspecified

== ENCOUNTER 2021-06-18 23:54 | Emergency (ER) | payer MEDICAID ==
[~2021-06-18] VITALS: Ht 170.2 cm; Wt 59.0 kg
[2021-06-19 02:43] LABS: Basophils # (auto) 0 10 ^3/uL (0-0.2); Basophils % (auto) 0.2 % (0.0-2.0); Eosinophils # (auto) 0 10 ^3/uL (0-0.8); Eosinophils % (auto) 0.1 % (0.0-7.0); Hematocrit 30.2 % (41.0-53.0); Hemoglobin 9.9 g/dL (13.5-17.5); Lymphocytes # (auto) 2.5 10 ^3/uL (0.4-5.4); Lymphocytes % (auto) 21.9 % (10.0-50.0); Mean Corpuscular Hemoglobin 29.9 pg (28.0-32.0); Mean Corpuscular Hgb Conc. 32.8 g/dL (32.0-36.0); Mean Corpuscular Volume 91.3 fL (80.0-100.0); Monocytes # (auto) 1.6 10 ^3/uL (0-1.3); Neutrophils # (auto) 7.3 10 ^3/uL (1.6-8.6); Neutrophils % (auto) 63.8 % (37.0-80.0); Nucleated Red Blood Cells % 0.1 %; Red Blood Cells 3.31 10^6/uL (4.5-5.90); Red Cell Distribution Width 15.2 % (11.8-14.3); White Blood Cell 11.4 10^3/uL (4.4-10.8)
[2021-06-19 03:07] LABS: Albumin 3.1 g/dL (3.4-5.0); BUN/Creatinine Ratio 29.1; Calcium 8.2 mg/dL (8.5-10.1); Potassium 3.7 mmol/L (3.5-5.1)
[2021-06-19 03:10] LABS: Bilirubin, Total 0.7 mg/dL (0.2-1.0); Total Protein 6.6 g/dL (6.4-8.2)
[2021-06-19 06:02] VITALS: BP 132/77
== END 2021-06-19 07:59 | disposition left against medical advice (07) ==
LOC: EDUNIT# 23:54 → EDBD 23:54 → ER 23:57
DX: R45.851 Suicidal ideations (principal); F20.9 Schizophrenia, unspecified
CPT/HCPCS: 36415; 80053; 80320; 85025

== ENCOUNTER → 2021-06-18 | Emergency (ER) | payer MEDICAID ==
[~2021-06-18] VITALS: Ht 165.1 cm; Wt 59.0 kg
[2021-06-18 15:21] VITALS: BP 127/77
== END | disposition home or self-care (01) ==
LOC: EDUNIT# 14:50 → EDBD 14:55 → ER 14:55
DX: R45.851 Suicidal ideations (principal); Z59.00 Homelessness unspecified; Z79.899 Other long term (current) drug therapy

== ENCOUNTER 2021-06-19 18:50 | Emergency (ER) | payer MEDICAID ==
[~2021-06-19] VITALS: Ht 172.7 cm; Wt 68.0 kg
[2021-06-19 19:34] VITALS: BP 150/97
== END 2021-06-19 19:50 | disposition home or self-care (01) ==
LOC: EDBD 18:50 → ER 18:59
DX: F20.9 Schizophrenia, unspecified (principal); Z79.899 Other long term (current) drug therapy

== ENCOUNTER 2021-06-19 22:24 | Emergency (ER) | payer MEDICAID ==
[~2021-06-19] VITALS: Ht 180.3 cm; Wt 72.6 kg
[2021-06-20 00:59] VITALS: BP 119/60
== END 2021-06-20 02:08 | disposition left against medical advice (07) ==
LOC: EDBD 22:24 → ER 22:24
DX: Z00.8 Encounter for other general examination (principal); R53.83 Other fatigue; Z53.21 Procedure and treatment not carried out due to patient leaving prior to being seen by health care provider

== ENCOUNTER 2021-06-20 02:55 | Emergency (ER) | payer MEDICAID ==
[~2021-06-20] VITALS: Ht 175.3 cm; Wt 63.5 kg
[2021-06-20 08:07] VITALS: BP 147/81
== END 2021-06-20 07:51 | disposition home or self-care (01) ==
LOC: EDBD 02:55 → EDUNIT# 02:55 → ER 02:55
DX: T73.0XXA Starvation, initial encounter (principal); Z79.899 Other long term (current) drug therapy; X58.XXXA Exposure to other specified factors, initial encounter

== ENCOUNTER 2021-06-25 21:16 | Emergency (ER) | payer MEDICAID ==
[~2021-06-25] VITALS: Ht 172.7 cm; Wt 65.8 kg
[2021-06-25 21:42] VITALS: BP 137/81
== END 2021-06-26 01:43 | disposition home or self-care (01) ==
LOC: EDBD 21:16 → ER 21:20
DX: T78.40XA Allergy, unspecified, initial encounter (principal); R07.0 Pain in throat; X58.XXXA Exposure to other specified factors, initial encounter

== ENCOUNTER 2021-07-03 11:21 | Emergency (ER) | payer MEDICAID ==
[~2021-07-03] VITALS: Ht 175.3 cm; Wt 63.5 kg
[2021-07-03 14:15] VITALS: BP 150/90
[2021-07-03] MEDS ORDERED: methylPREDNISolone SOD SUCC 125 MG/2 ML VL IM ONE (15:15)
== END 2021-07-03 15:29 | disposition home or self-care (01) ==
LOC: EDBD 11:21 → ER 11:21
DX: T78.40XA Allergy, unspecified, initial encounter (principal); Z79.899 Other long term (current) drug therapy; Y92.89 Other specified places as the place of occurrence of the external cause
CPT/HCPCS: 99283; J2930

== ENCOUNTER 2021-07-06 02:27 | Emergency (ER) | payer MEDICAID ==
[~2021-07-06] VITALS: Ht 188 cm; Wt 72.6 kg
[2021-07-06 02:30] VITALS: BP 157/85
== END 2021-07-06 09:36 | disposition left against medical advice (07) ==
LOC: ER 02:27
DX: R45.851 Suicidal ideations (principal); F20.9 Schizophrenia, unspecified; Z79.899 Other long term (current) drug therapy

== ENCOUNTER → 2021-07-08 | Emergency (ER) | payer MEDICAID ==
[~2021-07-08] VITALS: Ht 177.8 cm; Wt 72.6 kg
[2021-07-08 20:29] VITALS: BP 138/86
== END | disposition left against medical advice (07) ==
LOC: EDBD 20:19 → EDUNIT# 20:19 → ER 20:22
DX: R45.851 Suicidal ideations (principal); Z53.21 Procedure and treatment not carried out due to patient leaving prior to being seen by health care provider